=== PATIENT | male | born 2000 | race Caucasian/White ===

== ENCOUNTER 2021-07-07 04:53 | Emergency (ER) | payer OTHER ==
[~2021-07-07 04:53] MED LIST: IBUPROFEN800 MG PO; MOTRIN600 MG PO; ZOFRAN4 MG PO
== END 2021-07-07 07:35 | disposition left against medical advice (07) ==
LOC: FER 04:53
DX: S41.111A Laceration without foreign body of right upper arm, initial encounter (principal); Z23 Encounter for immunization; Z88.5 Allergy status to narcotic agent; Z53.21 Procedure and treatment not carried out due to patient leaving prior to being seen by health care provider; X58.XXXA Exposure to other specified factors, initial encounter; Y93.89 Activity, other specified
CPT/HCPCS: 73090